=== PATIENT | male | born 1990 | race Caucasian/White ===

== ENCOUNTER 2016-12-08 16:11 | Emergency (ER) | payer MEDICAID, OTHER ==
[~2016-12-08] VITALS: Ht 170.2 cm; Wt 81.8 kg
[~2016-12-08 16:11] MED LIST: DIVA500T35 PO; PALI3 PO
[2016-12-08] MEDS ORDERED: HALOPERIDOL 5 MG TABLET PO ONE (16:30)
[2016-12-08] MEDS ORDERED: LORazepam 2 MG TABLET PO ONE (16:30)
[2016-12-08 16:40] LABS: BASOPHILS % (AUTO) 0.4 % (0.0-2.0); EOSINOPHILS % (AUTO) 0.8 % (1.0-6.0); HEMATOCRIT 40.9 % (41-53); HEMOGLOBIN 14.2 g/dL (13.5-17.5); LYMPHOCYTES # (AUTO) 1.5 K/uL (1.0-4.8); LYMPHOCYTES % (AUTO) 20.5 % (22.0-44.0); MEAN CORPUSCULAR HEMOGLOBIN 30.6 pg (26.0-34.0); MEAN CORPUSCULAR HGB CONC 34.6 G/dL (31.0-37.0); MEAN CORPUSCULAR VOLUME 89 fL (80-100); MONOCYTES # (AUTO) 0.5 K/uL (0.1-1.0); MONOCYTES % (AUTO) 7.4 % (2.0-9.0); NEUTROPHILS # (AUTO) 5.1 K/uL (1.8-7.7); NEUTROPHILS % (AUTO) 70.9 % (40.0-70.0); PLATELET COUNT (AUTO) 238 K/uL (150-450); RED BLOOD CELL COUNT(AUTO) 4.62 MIL/uL (4.50-5.90); RED CELL DISTRIBUTION WIDTH 14.5 % (11.5-14.5); WHITE BLOOD COUNT (AUTO) 7.2 K/uL (4.5-11.0)
[2016-12-08 17:16] LABS: ANION GAP 12 mmol/L (8-16); CARBON DIOXIDE 22 mmol/L (22-29); CHLORIDE 104 mmol/L (98-107); CREATININE 0.87 mg/dL (0.60-1.30); GLOMERULAR FILTR. RATE CALC > 60 mL/min (>60); SODIUM SERUM 138 mmol/L (136-145); UREA NITROGEN, BLOOD 11 mg/dL (7-18)
[2016-12-08 17:22] LABS: ALANINE AMINOTRANSFERASE 22 U/L (12-78); ALBUMIN 3.8 g/dL (3.4-5.0); ASPARTATE AMINOTRANSFERASE 13 U/L (15-37); BILIRUBIN,TOTAL 0.4 mg/dL (0.1-1.0); TOTAL PROTEIN, SERUM 7.3 g/dL (6.4-8.2)
[2016-12-08 19:58] VITALS: BP 110/76
[2016-12-09] MEDS ORDERED: DIPH25 PO (06:41)
[2016-12-09] MEDS ORDERED: RISP2 PO (06:41)
== END 2016-12-08 20:24 | disposition home or self-care (01) ==
LOC: EMS 16:14
DX: F25.9 Schizoaffective disorder, unspecified (principal); F32.9 Major depressive disorder, single episode, unspecified; F12.90 Cannabis use, unspecified, uncomplicated
CPT/HCPCS: 36415; 80053; 80164; 80307; 85025; 99284; G0480

== ENCOUNTER 2016-12-09 06:28 | Emergency (ER) | payer OTHER ==
[~2016-12-09] VITALS: Ht 172.7 cm; Wt 72.0 kg
[~2016-12-09 06:28] MED LIST changes: -PALI3 PO
[2016-12-09] MEDS ORDERED: RISP2 PO (06:41)
[2016-12-09] MEDS ORDERED: DIPH25 PO (06:41)
[2016-12-09 08:26] VITALS: BP 129/81
[2016-12-09] MEDS ORDERED: OLANZapine 5 MG TABLET PO ONE (09:00)
[2016-12-09] MEDS ORDERED: LORazepam 1 MG TABLET PO ONE (09:00)
== END 2016-12-09 09:13 | disposition home or self-care (01) ==
LOC: EMS 06:29
DX: S20.211A Contusion of right front wall of thorax, initial encounter (principal); F12.90 Cannabis use, unspecified, uncomplicated; W22.8XXA Striking against or struck by other objects, initial encounter; Y93.89 Activity, other specified; Y92.89 Other specified places as the place of occurrence of the external cause; Y99.8 Other external cause status
CPT/HCPCS: 99285

== ENCOUNTER 2019-05-09 14:47 | Emergency (ER) | payer MEDICAID, OTHER ==
[~2019-05-09] VITALS: Ht 172.7 cm; Wt 77.3 kg
[~2019-05-09 14:47] MED LIST changes: +DIPH25 PO; -DIVA500T35 PO; +RISP2 PO
[2019-05-09 15:06] VITALS: BP 158/90
== END 2019-05-09 17:00 | disposition home or self-care (01) ==
LOC: EMS 14:49
DX: F12.129 Cannabis abuse with intoxication, unspecified (principal); F32.9 Major depressive disorder, single episode, unspecified; F20.9 Schizophrenia, unspecified